=== PATIENT | male | born 1990 | race Caucasian/White ===

== ENCOUNTER 2017-08-15 18:23 | Emergency (ER) | payer OTHER ==
[~2017-08-15] VITALS: Ht 188 cm; Wt 117.9 kg
[~2017-08-15 18:23] MED LIST: ACETAMINOPHEN-1 EAC1 PO; ACTICIN 5% CREA60 G1 TOP; APAP/CODEI12 MG/5 ML PO; BACITRACIN28.4 GM TP; CELEXA 20 MG TA20 MG; CLEOCIN HCL150 MG PO; ERYTHROMYCIN250 MG PO; FLEXERIL PO; HYDROCODON-ACE1 EAC7 PO; HYDROCODONE-AP1 EAC6 PO; HYDROCODONE-APA1 TA1 PO; IBUPROFEN 200200 M1 PO; IBUPROFEN 800800 M1 PO; IBUPROFEN 800800 MG PO; KEFLEX500 MG PO; LIDOCAINE VISC100 M1 SWISH&SPIT; MEDROLDOSEPACK PO; NAPROSYN500 MG PO; NOHOMEMEDICATIONS; NORCO 5-325 TA1 EAC1 PO; NORCO 5-325 TA1 EACH PO; ONDANSETRON HCL4 M2 PO; PERCOCET 5-3251 EACH PO; PERCOCET PO; PERMETHRIN60 GM TOP; ROBAXIN500 MG PO; SILVADENE20 GM TP; TRAMADOL 50 MG50 MG PO; TYLENOL WITH CO1 TA1 PO; ULTRACET TABLET1 TAB PO; ULTRAM 50MG TAB50 MG PO; VENTOLIN HFA 1818 GM INH; VICODIN 5-3001 EACH PO; VICOPROFEN 2001 EACH PO; XANAX 0.25 MG0.25 MG PO; XANAX 0.5 MG0.5 MG PO; XANAX XR1 MG PO; ZANAFLEX4 MG PO; ZOFRAN ODT4 MG PO; ZPAK PO; magic mouthwash PO
[2017-08-15] MEDS ORDERED: KEFLEX500 M1 PO (19:04)
[2017-08-15] MEDS ORDERED: TRAMADOL 50 MG50 MG PO (19:04)
[2017-08-15 19:11] VITALS: BP 153/88
== END 2017-08-15 19:12 | disposition home or self-care (01) ==
LOC: M.ERS 18:23
DX: S61.211D Laceration without foreign body of left index finger without damage to nail, subsequent encounter (principal); J45.909 Unspecified asthma, uncomplicated; X58.XXXD Exposure to other specified factors, subsequent encounter; Z88.0 Allergy status to penicillin; Z88.2 Allergy status to sulfonamides; F17.210 Nicotine dependence, cigarettes, uncomplicated

== ENCOUNTER 2017-08-27 14:48 | Emergency (ER) | payer OTHER ==
[~2017-08-27] VITALS: Ht 188 cm; Wt 117.9 kg
[~2017-08-27 14:48] MED LIST changes: +KEFLEX500 M1 PO
[2017-08-27] MEDS ORDERED: CLEOCIN HCL150 MG PO (15:25)
[2017-08-27 16:16] VITALS: BP 147/94
== END 2017-08-27 16:17 | disposition home or self-care (01) ==
LOC: M.ERS 14:48
DX: M79.644 Pain in right finger(s) (principal); J45.909 Unspecified asthma, uncomplicated; F17.210 Nicotine dependence, cigarettes, uncomplicated; Z88.0 Allergy status to penicillin; Z88.2 Allergy status to sulfonamides

== ENCOUNTER 2017-11-09 13:50 | Emergency (ER) | payer OTHER ==
[~2017-11-09] VITALS: Ht 188 cm; Wt 117.9 kg
[2017-11-09] MEDS ORDERED: NORCO 10-325 T1 EACH PO (14:03)
[2017-11-09] MEDS ORDERED: ROBAXIN 750 MG750 M1 PO (14:03)
[2017-11-09 16:25] VITALS: BP 119/74
== END 2017-11-09 16:27 | disposition home or self-care (01) ==
LOC: M.ERS 13:50
DX: R51 Headache (principal); F07.81 Postconcussional syndrome; J45.909 Unspecified asthma, uncomplicated; G89.29 Other chronic pain; M54.9 Dorsalgia, unspecified; F17.210 Nicotine dependence, cigarettes, uncomplicated; Z88.0 Allergy status to penicillin; Z88.1 Allergy status to other antibiotic agents

== ENCOUNTER 2018-02-26 16:22 | Emergency (ER) | payer OTHER ==
[~2018-02-26] VITALS: Ht 188 cm; Wt 117.9 kg
[~2018-02-26 16:22] MED LIST changes: +NORCO 10-325 T1 EACH PO; +ROBAXIN 750 MG750 M1 PO
[2018-02-26 16:49] VITALS: BP 146/88
[2018-02-26] MEDS ORDERED: VOLTAREN GEL 1100 G1 TOP (17:12)
[2018-02-26] MEDS ORDERED: TRAMADOL 50 MG50 MG PO (17:12)
== END 2018-02-26 17:25 | disposition home or self-care (01) ==
LOC: M.ERS 16:22
DX: S46.811A Strain of other muscles, fascia and tendons at shoulder and upper arm level, right arm, initial encounter (principal); J45.909 Unspecified asthma, uncomplicated; G89.29 Other chronic pain; M54.9 Dorsalgia, unspecified; F17.210 Nicotine dependence, cigarettes, uncomplicated; Z88.0 Allergy status to penicillin; Z88.1 Allergy status to other antibiotic agents; X58.XXXA Exposure to other specified factors, initial encounter; Y93.89 Activity, other specified; Y92.89 Other specified places as the place of occurrence of the external cause; Y99.8 Other external cause status

== ENCOUNTER 2018-04-23 00:18 | Emergency (ER) | payer OTHER ==
[~2018-04-23] VITALS: Ht 188 cm; Wt 122.5 kg
[~2018-04-23 00:18] MED LIST changes: +VOLTAREN GEL 1100 G1 TOP
[2018-04-23 00:45] VITALS: BP 132/64
[2018-04-23 00:55] LABS: URINE BILIRUBIN NEGATIVE (Negative); URINE BLOOD NEGATIVE (Negative); URINE CLARITY CLEAR; URINE COLOR YELLOW; URINE GLUCOSE-RANDOM NEGATIVE (Negative); URINE KETONES NEGATIVE (Negative); URINE LEUKOCYTES-REFLEX NEGATIVE (Negative); URINE NITRITE-REFLEX NEGATIVE (Negative); URINE PROTEIN NEGATIVE (Negative); URINE SPECIFIC GRAVITY 1.015 (1.005-1.030); URINE UROBILINOGEN 0.2 E.U./dl (0.2-1.0)
[2018-04-23 01:05] LABS: ABSOLUTE EOSINOPHILS 0.3 thou/uL (0.0-0.7); ABSOLUTE LYMPHOCYTES 2.1 thou/uL (0.8-5.3); ABSOLUTE MONOCYTES 0.7 thou/uL (0.0-1.2); BASOPHILS 0.8 %; EOSINOPHILS 4.4 %; HEMATOCRIT 40.6 % (42.0-52.0); LYMPHOCYTES 34.2 %; MCH 31.1 pg (26.0-34.0); MCHC 34.5 g/dL (28.0-37.0); MCV 90.2 fL (80.0-100.0); MONOCYTES 11.3 %; MPV 7.7 fl. (7.2-11.1); NUCLEATED RBCS 0 /100WBC; PLATELET COUNT* 178 thou/uL (150-400); POLYS 49.3 %; RDW-CV 13.6 % (10.5-14.5); WBC 6.1 thou/uL (4.0-11.0)
[2018-04-23 01:20] LABS: ANION GAP 7 mmol/L (7-16); BUN 14 mg/dL (7-18); CALCIUM 7.9 mg/dL (8.5-10.1); CHLORIDE 104 mmol/L (98-107); CO2 27 mmol/L (21-32); CREATININE 1.3 mg/dL (0.6-1.3); SODIUM 138 mmol/L (136-145)
[2018-04-23 01:24] LABS: ALBUMIN 3.6 g/dL (3.4-5.0); ALKALINE PHOSPHATASE 59 U/L (46-116); LIPASE 124 U/L (73-393); SGPT 39 U/L (30-65); TOTAL BILIRUBIN 0.2 mg/dL (<0.1-1.0); TOTAL PROTEIN 6.7 g/dL (6.4-8.2); TROPONIN-I LEVEL <0.06 ng/mL (<0.06)
[2018-04-23 01:25] LABS: AMP/METHAMP Negative (Negative); BARBITURATES Negative (Negative); BENZODIAZEPINES POSITIVE (Negative); COCAINE Negative (Negative); METHADONE Negative (Negative); OPIATES POSITIVE (Negative); PCP Negative (Negative); THC POSITIVE (Negative)
[2018-04-23 02:13] LABS: GLUCOSE 90 mg/dL (70-99); SGOT 31 U/L (15-37)
--- NOTE | 2018-04-23 11:06 | EKG ---
[place] [address] ELECTROCARDIOGRAM REPORT Name: DENTDANIEL CARTWRIGHTALD Room: [facility].#: [id number] Admission: 04/23/18 Attend Phys: Discharge: 04/23/18 Date of : 86 Report #: [id number] THIS REPORT FOR: //name// [facility] ED Test Date: 2018-04-23 Test Time: 01:08:13 Pat Name: DANIEL DENT Department: Room: Gender: M Continuity Manager: SHAWN : 1990 Requested By: Pedro Starr Order Number: [id number] MD: Donny Michel Measurements Intervals Rena Lara Rate: 78 P: 34 PA: 164 QRS: 45 QRSD: 89 T: 23 QT: 391 QTc: 446 Interpretive Statements Sinus rhythm Baseline wander in lead(s) V1 No previous ECG available for comparison Electronically Signed On 04-23-2018 11:06:00 CDT by Donny Michel [email or web address] <ELECTRONICALLY SIGNED> By: Donny Michel MD, [facility] 04/23/18 [id number] Donny Michel MD, FACC /EPI
== END 2018-04-23 03:26 | disposition left against medical advice (07) ==
LOC: M.ERS 00:18
PROVIDERS: Emergency Medicine Emergency Medical Services
DX: R10.9 Unspecified abdominal pain (principal); R11.2 Nausea with vomiting, unspecified; R19.7 Diarrhea, unspecified; J45.909 Unspecified asthma, uncomplicated; G89.29 Other chronic pain; F17.210 Nicotine dependence, cigarettes, uncomplicated; Z88.0 Allergy status to penicillin; Z88.2 Allergy status to sulfonamides

== ENCOUNTER 2018-08-21 21:16 | Emergency (ER) | payer OTHER ==
[~2018-08-21] VITALS: Ht 188 cm; Wt 127.0 kg
[2018-08-21] MEDS ORDERED: NORCO 7.5-3251 EACH PO (22:05)
[2018-08-21] MEDS ORDERED: PHENERGAN 25 MG25 M1 PO (22:05)
[2018-08-21 22:17] VITALS: BP 143/81
== END 2018-08-21 22:18 | disposition home or self-care (01) ==
LOC: M.ERS 21:16
DX: S06.0X0A Concussion without loss of consciousness, initial encounter (principal); J45.909 Unspecified asthma, uncomplicated; G89.29 Other chronic pain; M54.9 Dorsalgia, unspecified; F17.210 Nicotine dependence, cigarettes, uncomplicated; Z88.0 Allergy status to penicillin; Z88.2 Allergy status to sulfonamides; W18.39XA Other fall on same level, initial encounter; Y93.01 Activity, walking, marching and hiking; Y92.89 Other specified places as the place of occurrence of the external cause; Y99.8 Other external cause status

== ENCOUNTER 2018-09-10 19:38 | Emergency (ER) | payer OTHER ==
[~2018-09-10] VITALS: Ht 188 cm; Wt 122.5 kg
[~2018-09-10 19:38] MED LIST changes: +NORCO 7.5-3251 EACH PO; +PHENERGAN 25 MG25 M1 PO
[2018-09-10] MEDS ORDERED: ZOFRAN ODT4 MG DISSOLVE (19:46)
[2018-09-10] MEDS ORDERED: XANAX1 MG PO (19:47)
[2018-09-10] MEDS ORDERED: ZOFRAN ODT4 MG PO (19:54)
[2018-09-10] MEDS ORDERED: NORCO 5-325 TA1 EACH PO (19:54)
[2018-09-10 20:14] VITALS: BP 140/79
== END 2018-09-10 20:10 | disposition home or self-care (01) ==
LOC: M.ERS 19:38
DX: R51 Headache (principal); F17.210 Nicotine dependence, cigarettes, uncomplicated; J45.909 Unspecified asthma, uncomplicated; M54.9 Dorsalgia, unspecified; G89.29 Other chronic pain; Z88.0 Allergy status to penicillin; Z88.2 Allergy status to sulfonamides

== ENCOUNTER 2018-10-07 09:06 | Emergency (ER) | payer OTHER ==
[~2018-10-07] VITALS: Ht 188 cm; Wt 12.7 kg
[~2018-10-07 09:06] MED LIST changes: +XANAX1 MG PO; +ZOFRAN ODT4 MG DISSOLVE
[2018-10-07] MEDS ORDERED: TAMIFLU75 MG PO (09:13)
[2018-10-07] MEDS ORDERED: BENTYL 10 MG CA10 M1 PO (09:23)
[2018-10-07] MEDS ORDERED: HYDROCHLOROTHIA25 M2 PO (09:23)
[2018-10-07] MEDS ORDERED: PANCREAS MED (09:24)
[2018-10-07 09:43] VITALS: BP 179/89
== END 2018-10-07 09:43 | disposition home or self-care (01) ==
LOC: M.ERS 09:06
DX: Z20.828 Contact with and (suspected) exposure to other viral communicable diseases (principal); J45.909 Unspecified asthma, uncomplicated; G89.29 Other chronic pain; M54.9 Dorsalgia, unspecified; F17.210 Nicotine dependence, cigarettes, uncomplicated; Z88.0 Allergy status to penicillin; Z88.2 Allergy status to sulfonamides

== ENCOUNTER 2018-10-09 02:33 | Emergency (ER) | payer OTHER ==
[~2018-10-09] VITALS: Ht 188 cm; Wt 127.0 kg
[~2018-10-09 02:33] MED LIST changes: +BENTYL 10 MG CA10 M1 PO; +HYDROCHLOROTHIA25 M2 PO; +PANCREAS MED; +TAMIFLU75 MG PO
[2018-10-09 03:40] LABS: ABSOLUTE LYMPHOCYTES 0.6 thou/uL (0.8-5.3); ABSOLUTE MONOCYTES 0.2 thou/uL (0.0-1.2); ABSOLUTE NEUTROPHILS 3.7 thou/uL (1.6-8.1); BASOPHILS 0.4 %; EOSINOPHILS 0.1 %; HEMATOCRIT 43.3 % (42.0-52.0); LYMPHOCYTES 12.3 %; MCH 30.3 pg (26.0-34.0); MCHC 34.7 g/dL (28.0-37.0); MCV 87.3 fL (80.0-100.0); MONOCYTES 5.2 %; NUCLEATED RBCS 0 /100WBC; PLATELET COUNT* 184 thou/uL (150-400); RBC 4.96 mil/uL (4.50-6.00); RDW-CV 13.5 % (10.5-14.5); WBC 4.5 thou/uL (4.0-11.0)
[2018-10-09 04:10] LABS: CALCIUM 8.9 mg/dL (8.5-10.1); CREATININE 1.3 mg/dL (0.6-1.3); POTASSIUM 3.8 mmol/L (3.5-5.1); TOTAL BILIRUBIN 0.2 mg/dL (<0.1-1.0); TOTAL PROTEIN 7.1 g/dL (6.4-8.2)
[2018-10-09 05:22] LABS: INFLUENZA A ANTIGEN None Detected (None Detect); INFLUENZA B ANTIGEN None Detected (None Detect)
[2018-10-09] MEDS ORDERED: NORCO 5-325 TA1 EACH PO (05:31)
[2018-10-09] MEDS ORDERED: IBUPROFEN 800800 M1 PO (05:31)
[2018-10-09] MEDS ORDERED: PHENERGAN 25 MG25 M1 PO (05:31)
[2018-10-09 05:40] VITALS: BP 122/61
[2018-10-10] MEDS ORDERED: ZOFRAN ODT4 MG PO (07:04)
[2018-10-10] MEDS ORDERED: PERCOCET 7.5-31 EACH PO (07:04)
== END 2018-10-09 05:40 | disposition home or self-care (01) ==
LOC: M.ERS 02:33
PROVIDERS: Personal Emergency Response Attendant
DX: B34.9 Viral infection, unspecified (principal); R42 Dizziness and giddiness; F17.210 Nicotine dependence, cigarettes, uncomplicated; J45.909 Unspecified asthma, uncomplicated; M54.9 Dorsalgia, unspecified; G89.29 Other chronic pain; Z88.2 Allergy status to sulfonamides; Z88.0 Allergy status to penicillin

== ENCOUNTER 2018-10-10 02:13 | Emergency (ER) | payer OTHER ==
[~2018-10-10] VITALS: Ht 188 cm; Wt 127.0 kg
[2018-10-10 04:14] LABS: INFLUENZA A ANTIGEN None Detected (None Detect); INFLUENZA B ANTIGEN None Detected (None Detect)
[2018-10-10 04:15] LABS: ABSOLUTE BASOPHILS 0.1 thou/uL (0.0-0.2); ABSOLUTE LYMPHOCYTES 2.2 thou/uL (0.8-5.3); ABSOLUTE NEUTROPHILS 9.8 thou/uL (1.6-8.1); BASOPHILS 0.4 %; EOSINOPHILS 0.1 %; HEMATOCRIT 40.5 % (42.0-52.0); HEMOGLOBIN 13.8 gm/dL (14.0-18.0); LYMPHOCYTES 16.5 %; MCH 29.9 pg (26.0-34.0); NUCLEATED RBCS 0 /100WBC; PLATELET COUNT* 168 thou/uL (150-400)
[2018-10-10 04:52] LABS: ALBUMIN 3.4 g/dL (3.4-5.0); CALCIUM 8.6 mg/dL (8.5-10.1); CREATININE 1.1 mg/dL (0.6-1.3); POTASSIUM 3.7 mmol/L (3.5-5.1); TOTAL BILIRUBIN 0.3 mg/dL (<0.1-1.0); TOTAL PROTEIN 6.3 g/dL (6.4-8.2)
[2018-10-10 06:28] LABS: VOLUME 8 ml
[2018-10-10 06:30] LABS: CSF CLARITY CLEAR; CSF COLOR COLORLESS
[2018-10-10 06:34] LABS: AMP/METHAMP Negative (Negative); BARBITURATES Negative (Negative); BENZODIAZEPINES POSITIVE (Negative); COCAINE Negative (Negative); METHADONE Negative (Negative); OPIATES POSITIVE (Negative); PCP Negative (Negative); THC POSITIVE (Negative)
[2018-10-10] MEDS ORDERED: ZOFRAN ODT4 MG PO (07:04)
[2018-10-10] MEDS ORDERED: PERCOCET 7.5-31 EACH PO (07:04)
[2018-10-10 07:06] LABS: CSF RBC 3 /mm3; CSF WBC 4 /mm3 (0-10)
[2018-10-10 07:13] LABS: CSF PROTEIN 51.2 mg/dl (15-45)
[2018-10-10 07:44] LABS: CSF CLARITY CLEAR; CSF COLOR COLORLESS; VOLUME 8 ml
[2018-10-10 08:05] VITALS: BP 150/67
[2018-10-10 08:10] LABS: CSF WBC 5 /mm3 (0-10)
[2018-10-10 08:11] LABS: CSF RBC 34 /mm3
== END 2018-10-10 08:05 | disposition home or self-care (01) ==
LOC: M.ERS 02:13
PROVIDERS: Emergency Medicine
DX: J06.9 Acute upper respiratory infection, unspecified (principal); R51 Headache; R11.2 Nausea with vomiting, unspecified; J45.909 Unspecified asthma, uncomplicated; G89.29 Other chronic pain; M54.9 Dorsalgia, unspecified; F17.210 Nicotine dependence, cigarettes, uncomplicated; Z88.0 Allergy status to penicillin; Z88.2 Allergy status to sulfonamides; Z79.899 Other long term (current) drug therapy

== ENCOUNTER 2018-11-23 20:43 | Emergency (ER) | payer OTHER ==
[~2018-11-23] VITALS: Ht 188 cm; Wt 117.9 kg
[~2018-11-23 20:43] MED LIST changes: +PERCOCET 7.5-31 EACH PO
[2018-11-23 21:12] LABS: ABSOLUTE BASOPHILS 0.1 thou/uL (0.0-0.2); ABSOLUTE EOSINOPHILS 0.1 thou/uL (0.0-0.7); ABSOLUTE LYMPHOCYTES 2.8 thou/uL (0.8-5.3); ABSOLUTE NEUTROPHILS 4.5 thou/uL (1.6-8.1); BASOPHILS 1.3 %; EOSINOPHILS 1.7 %; HEMATOCRIT 46.6 % (42.0-52.0); HEMOGLOBIN 16.2 gm/dL (14.0-18.0); LYMPHOCYTES 32.8 %; MCH 30.6 pg (26.0-34.0); MCHC 34.8 g/dL (28.0-37.0); MONOCYTES 11.1 %; MPV 7.6 fl. (7.2-11.1); NUCLEATED RBCS 0 /100WBC; PLATELET COUNT* 216 thou/uL (150-400); POLYS 53.1 %; RDW-CV 13.8 % (10.5-14.5); WBC 8.6 thou/uL (4.0-11.0)
[2018-11-23 21:24] LABS: ALBUMIN 4.3 g/dL (3.4-5.0); CALCIUM 9.3 mg/dL (8.5-10.1); CREATININE 1.4 mg/dL (0.6-1.3); POTASSIUM 4.7 mmol/L (3.5-5.1); TOTAL BILIRUBIN 0.6 mg/dL (<0.1-1.0); TOTAL PROTEIN 7.6 g/dL (6.4-8.2)
[2018-11-23 21:24] LABS: URINE BILIRUBIN NEGATIVE (Negative); URINE BLOOD TRACE (Negative); URINE CLARITY CLEAR; URINE COLOR YELLOW; URINE GLUCOSE-RANDOM NEGATIVE (Negative); URINE KETONES NEGATIVE (Negative); URINE LEUKOCYTES-REFLEX NEGATIVE (Negative); URINE NITRITE-REFLEX NEGATIVE (Negative); URINE PROTEIN NEGATIVE (Negative); URINE SPECIFIC GRAVITY >= 1.030 (1.005-1.030); URINE UROBILINOGEN 0.2 E.U./dl (0.2-1.0)
[2018-11-23 21:32] LABS: AMP/METHAMP Negative (Negative); BARBITURATES Negative (Negative); BENZODIAZEPINES POSITIVE (Negative); COCAINE Negative (Negative); METHADONE Negative (Negative); OPIATES Negative (Negative); PCP Negative (Negative); THC POSITIVE (Negative)
[2018-11-23] MEDS ORDERED: HYDROCODON-ACE1 EAC7 PO (21:41)
[2018-11-23] MEDS ORDERED: ZOFRAN4 MG PO (21:41)
[2018-11-23 22:08] VITALS: BP 194/75
== END 2018-11-23 22:09 | disposition home or self-care (01) ==
LOC: M.ERS 20:43
PROVIDERS: Emergency Medicine
DX: E86.0 Dehydration (principal); R51 Headache; J45.909 Unspecified asthma, uncomplicated; F17.210 Nicotine dependence, cigarettes, uncomplicated; Z88.0 Allergy status to penicillin; Z88.2 Allergy status to sulfonamides

== ENCOUNTER 2018-11-29 18:21 | Emergency (ER) | payer OTHER ==
[~2018-11-29] VITALS: Ht 188 cm; Wt 108.9 kg
[~2018-11-29 18:21] MED LIST changes: +ZOFRAN4 MG PO
[2018-11-29 18:44] LABS: URINE BILIRUBIN NEGATIVE (Negative); URINE BLOOD NEGATIVE (Negative); URINE CLARITY CLEAR; URINE COLOR YELLOW; URINE GLUCOSE-RANDOM NEGATIVE (Negative); URINE KETONES NEGATIVE (Negative); URINE LEUKOCYTES-REFLEX NEGATIVE (Negative); URINE NITRITE-REFLEX NEGATIVE (Negative); URINE PROTEIN NEGATIVE (Negative); URINE UROBILINOGEN 0.2 E.U./dl (0.2-1.0)
[2018-11-29 18:52] LABS: ABSOLUTE BASOPHILS 0.1 thou/uL (0.0-0.2); ABSOLUTE EOSINOPHILS 0.1 thou/uL (0.0-0.7); ABSOLUTE LYMPHOCYTES 2.3 thou/uL (0.8-5.3); ABSOLUTE NEUTROPHILS 7.6 thou/uL (1.6-8.1); BASOPHILS 0.7 %; EOSINOPHILS 1.1 %; HEMOGLOBIN 15.2 gm/dL (14.0-18.0); LYMPHOCYTES 21.1 %; MCH 30.6 pg (26.0-34.0); MCHC 34.6 g/dL (28.0-37.0); MCV 88.4 fL (80.0-100.0); MONOCYTES 8.6 %; MPV 7.8 fl. (7.2-11.1); NUCLEATED RBCS 0 /100WBC; PLATELET COUNT* 208 thou/uL (150-400); POLYS 68.5 %; RBC 4.98 mil/uL (4.50-6.00); RDW-CV 14.2 % (10.5-14.5); WBC 11.1 thou/uL (4.0-11.0)
[2018-11-29 19:04] LABS: ALBUMIN 4.2 g/dL (3.4-5.0); CREATININE 1.3 mg/dL (0.6-1.3); POTASSIUM 3.9 mmol/L (3.5-5.1); TOTAL BILIRUBIN 0.3 mg/dL (<0.1-1.0); TOTAL PROTEIN 7.6 g/dL (6.4-8.2)
[2018-11-29] MEDS ORDERED: NORCO 5-325 TA1 EACH PO (20:59)
[2018-11-29 21:15] VITALS: BP 133/85
== END 2018-11-29 21:16 | disposition home or self-care (01) ==
LOC: M.ERS 18:21
PROVIDERS: Nurse Practitioner Family
DX: R10.12 Left upper quadrant pain (principal); R11.2 Nausea with vomiting, unspecified; R19.7 Diarrhea, unspecified; J45.909 Unspecified asthma, uncomplicated; G89.29 Other chronic pain; M54.9 Dorsalgia, unspecified; I10 Essential (primary) hypertension; F17.210 Nicotine dependence, cigarettes, uncomplicated; Z88.0 Allergy status to penicillin; Z88.2 Allergy status to sulfonamides

== ENCOUNTER 2018-12-26 03:23 | Emergency (ER) | payer OTHER ==
[~2018-12-26] VITALS: Ht 188 cm; Wt 122.5 kg
[2018-12-26] MEDS ORDERED: PHENERGAN 25 MG25 M1 (03:33)
[2018-12-26] MEDS ORDERED: BLOOD PRESSURE (03:34)
[2018-12-26 03:54] LABS: ABSOLUTE EOSINOPHILS 0.1 thou/uL (0.0-0.7); ABSOLUTE LYMPHOCYTES 1.7 thou/uL (0.8-5.3); ABSOLUTE MONOCYTES 0.7 thou/uL (0.0-1.2); ABSOLUTE NEUTROPHILS 4.1 thou/uL (1.6-8.1); BASOPHILS 0.4 %; HEMATOCRIT 42.7 % (42.0-52.0); HEMOGLOBIN 14.6 gm/dL (14.0-18.0); LYMPHOCYTES 25.4 %; MCH 30.8 pg (26.0-34.0); MCHC 34.1 g/dL (28.0-37.0); MCV 90.1 fL (80.0-100.0); NUCLEATED RBCS 0 /100WBC; PLATELET COUNT* 180 thou/uL (150-400); POLYS 61.2 %; RBC 4.74 mil/uL (4.50-6.00); WBC 6.8 thou/uL (4.0-11.0)
[2018-12-26 04:04] LABS: CALCIUM 8.8 mg/dL (8.5-10.1); CREATININE 1.1 mg/dL (0.6-1.3); POTASSIUM 4.5 mmol/L (3.5-5.1)
[2018-12-26 04:08] LABS: ALBUMIN 4.1 g/dL (3.4-5.0); TOTAL BILIRUBIN 0.3 mg/dL (<0.1-1.0)
[2018-12-26 04:31] LABS: URINE BILIRUBIN NEGATIVE (Negative); URINE BLOOD NEGATIVE (Negative); URINE CLARITY CLEAR; URINE COLOR STRAW; URINE GLUCOSE-RANDOM NEGATIVE (Negative); URINE KETONES NEGATIVE (Negative); URINE LEUKOCYTES-REFLEX NEGATIVE (Negative); URINE NITRITE-REFLEX NEGATIVE (Negative); URINE PROTEIN NEGATIVE (Negative); URINE SPECIFIC GRAVITY <= 1.005 (1.005-1.030); URINE UROBILINOGEN 0.2 E.U./dl (0.2-1.0)
[2018-12-26 04:39] LABS: AMP/METHAMP Negative (Negative); BARBITURATES Negative (Negative); BENZODIAZEPINES POSITIVE (Negative); COCAINE Negative (Negative); METHADONE Negative (Negative); OPIATES Negative (Negative); PCP Negative (Negative); THC POSITIVE (Negative)
[2018-12-26 05:38] VITALS: BP 141/71
== END 2018-12-26 05:39 | disposition home or self-care (01) ==
LOC: M.ERS 03:23
PROVIDERS: Emergency Medicine
DX: R51 Headache (principal); R10.31 Right lower quadrant pain; F17.210 Nicotine dependence, cigarettes, uncomplicated; J45.909 Unspecified asthma, uncomplicated; M54.9 Dorsalgia, unspecified; G89.29 Other chronic pain; I10 Essential (primary) hypertension; Z88.2 Allergy status to sulfonamides; Z88.0 Allergy status to penicillin

== ENCOUNTER 2019-04-04 14:18 | Emergency (ER) | payer OTHER ==
[~2019-04-04] VITALS: Ht 188 cm; Wt 122.5 kg
[~2019-04-04 14:18] MED LIST changes: +BLOOD PRESSURE; +PHENERGAN 25 MG25 M1
[2019-04-04] MEDS ORDERED: GEMFIBROZIL 60600 MG PO (14:34)
[2019-04-04] MEDS ORDERED: IBUPROFEN 600600 M1 PO (14:35)
[2019-04-04 14:42] VITALS: BP 166/88
== END 2019-04-04 14:43 | disposition home or self-care (01) ==
LOC: M.ERS 14:18
DX: S00.83XA Contusion of other part of head, initial encounter (principal); J45.909 Unspecified asthma, uncomplicated; G89.29 Other chronic pain; I10 Essential (primary) hypertension; F17.210 Nicotine dependence, cigarettes, uncomplicated; Z88.0 Allergy status to penicillin; Z88.2 Allergy status to sulfonamides; W22.8XXA Striking against or struck by other objects, initial encounter; Y93.89 Activity, other specified; Y92.89 Other specified places as the place of occurrence of the external cause; Y99.8 Other external cause status

== ENCOUNTER 2020-01-28 10:54 | Emergency (ER) | payer OTHER ==
[~2020-01-28] VITALS: Ht 188 cm; Wt 117.9 kg
[~2020-01-28 10:54] MED LIST changes: +GEMFIBROZIL 60600 MG PO; +IBUPROFEN 600600 M1 PO
[2020-01-28] MEDS ORDERED: NORCO 5-325 TA1 EAC1 PO ×2 (11:41→18:28)
[2020-01-28 11:48] VITALS: BP 171/77
== END 2020-01-28 11:48 | disposition home or self-care (01) ==
LOC: M.ERS 10:54
DX: S83.8X2A Sprain of other specified parts of left knee, initial encounter (principal); I10 Essential (primary) hypertension; J45.909 Unspecified asthma, uncomplicated; G89.29 Other chronic pain; F17.210 Nicotine dependence, cigarettes, uncomplicated; Z88.0 Allergy status to penicillin; Z88.2 Allergy status to sulfonamides; X50.1XXA Overexertion from prolonged static or awkward postures, initial encounter; Y93.66 Activity, soccer; Y92.89 Other specified places as the place of occurrence of the external cause; Y99.8 Other external cause status

== ENCOUNTER 2020-03-30 22:43 | Emergency (ER) | payer OTHER ==
[~2020-03-30] VITALS: Ht 188 cm; Wt 127.0 kg
[2020-03-30] MEDS ORDERED: CELEXA10 MG PO (22:55)
[2020-03-30] MEDS ORDERED: SEROQUEL 25 MG25 M1 PO (22:55)
[2020-03-30] MEDS ORDERED: HYDROCODON-ACE1 EAC8 PO ×2 (23:21→23:29)
[2020-03-30] MEDS ORDERED: KEFLEX500 M1 PO ×2 (23:21→23:29)
[2020-03-30 23:35] VITALS: BP 154/70
== END 2020-03-30 23:36 | disposition home or self-care (01) ==
LOC: M.ERS 22:43
DX: K02.9 Dental caries, unspecified (principal); J45.909 Unspecified asthma, uncomplicated; I10 Essential (primary) hypertension; G89.29 Other chronic pain; Z88.2 Allergy status to sulfonamides; Z88.0 Allergy status to penicillin

== ENCOUNTER 2020-04-08 14:33 | Emergency (ER) | payer OTHER ==
[~2020-04-08] VITALS: Ht 188 cm; Wt 127.0 kg
[~2020-04-08 14:33] MED LIST changes: +CELEXA10 MG PO; +HYDROCODON-ACE1 EAC8 PO; +SEROQUEL 25 MG25 M1 PO
[2020-04-08] MEDS ORDERED: CLEOCIN HCL150 MG PO (15:55)
[2020-04-08] MEDS ORDERED: APAP W/CODEINE1 TA2 PO (15:55)
[2020-04-08 16:03] VITALS: BP 196/107
== END 2020-04-08 16:04 | disposition home or self-care (01) ==
LOC: M.ERS 14:33
DX: K04.7 Periapical abscess without sinus (principal); K01.1 Impacted teeth; J45.909 Unspecified asthma, uncomplicated; I10 Essential (primary) hypertension; F17.210 Nicotine dependence, cigarettes, uncomplicated; Z88.0 Allergy status to penicillin; Z88.2 Allergy status to sulfonamides

== ENCOUNTER 2020-07-17 20:54 | Emergency (ER) | payer OTHER ==
[~2020-07-17] VITALS: Ht 188 cm; Wt 131.5 kg
[~2020-07-17 20:54] MED LIST changes: +APAP W/CODEINE1 TA2 PO
[2020-07-17] MEDS ORDERED: WELLBUTRIN XL300 MG PO (21:06)
[2020-07-17] MEDS ORDERED: DESYREL150 MG PO (21:06)
[2020-07-17] MEDS ORDERED: MELOXICAM15 MG PO (21:39)
[2020-07-17] MEDS ORDERED: ACETAMINOPHEN-1 EAC2 PO (21:39)
[2020-07-17 21:45] VITALS: BP 140/88
== END 2020-07-17 21:45 | disposition home or self-care (01) ==
LOC: M.ERS 20:54
DX: S83.92XA Sprain of unspecified site of left knee, initial encounter (principal); J45.909 Unspecified asthma, uncomplicated; G89.29 Other chronic pain; I10 Essential (primary) hypertension; Z88.0 Allergy status to penicillin; Z88.2 Allergy status to sulfonamides; Z79.899 Other long term (current) drug therapy; X50.1XXA Overexertion from prolonged static or awkward postures, initial encounter; Y93.01 Activity, walking, marching and hiking; Y92.89 Other specified places as the place of occurrence of the external cause; Y99.9 Unspecified external cause status

== ENCOUNTER 2020-12-28 20:57 | Emergency (ER) | payer OTHER ==
[~2020-12-28] VITALS: Ht 188 cm; Wt 127.0 kg
[~2020-12-28 20:57] MED LIST changes: +ACETAMINOPHEN-1 EAC2 PO; +DESYREL150 MG PO; +MELOXICAM15 MG PO; +WELLBUTRIN XL300 MG PO
[2020-12-28] MEDS ORDERED: PEPCID20 MG PO (21:06)
[2020-12-28] MEDS ORDERED: CIPROFLOXIN HC2.5 M1 OPHTHALMIC (21:21)
[2020-12-28 21:31] VITALS: BP 132/76
== END 2020-12-28 21:32 | disposition home or self-care (01) ==
LOC: M.ERS 20:57
DX: S05.02XA Injury of conjunctiva and corneal abrasion without foreign body, left eye, initial encounter (principal); J45.909 Unspecified asthma, uncomplicated; I10 Essential (primary) hypertension; F17.210 Nicotine dependence, cigarettes, uncomplicated; Z79.899 Other long term (current) drug therapy; Z88.0 Allergy status to penicillin; Z88.2 Allergy status to sulfonamides; W22.8XXA Striking against or struck by other objects, initial encounter; Y93.H2 Activity, gardening and landscaping; Y92.89 Other specified places as the place of occurrence of the external cause; Y99.8 Other external cause status

== ENCOUNTER 2021-05-04 13:32 | Emergency (ER) | payer OTHER ==
[~2021-05-04] VITALS: Ht 188 cm; Wt 113.4 kg
[~2021-05-04 13:32] MED LIST changes: +CIPROFLOXIN HC2.5 M1 OPHTHALMIC; +PEPCID20 MG PO
[2021-05-04] MEDS ORDERED: NORCO5 PO ×3 (14:00→14:18)
[2021-05-04] MEDS ORDERED: CLINDAMYCIN HC300 MG PO ×2 (14:00→14:18)
[2021-05-04] MEDS ORDERED: LIDOCAINE VISC100 ML SWISH&SPIT (14:00)
[2021-05-04 14:10] VITALS: BP 141/70
== END 2021-05-04 14:11 | disposition home or self-care (01) ==
LOC: M.ERS 13:32
DX: K01.1 Impacted teeth (principal); J45.909 Unspecified asthma, uncomplicated; I10 Essential (primary) hypertension; F17.210 Nicotine dependence, cigarettes, uncomplicated; Z79.899 Other long term (current) drug therapy; Z90.89 Acquired absence of other organs; Z88.0 Allergy status to penicillin; Z88.2 Allergy status to sulfonamides

== ENCOUNTER 2021-05-12 21:04 | Emergency (ER) | payer OTHER ==
[~2021-05-12] VITALS: Ht 188 cm; Wt 113.4 kg
[~2021-05-12 21:04] MED LIST changes: +CLINDAMYCIN HC300 MG PO; +LIDOCAINE VISC100 ML SWISH&SPIT; +NORCO5 PO
[2021-05-12] MEDS ORDERED: NORCO5 PO (21:23)
[2021-05-12] MEDS ORDERED: FLEXERIL PO (21:23)
[2021-05-12 21:38] VITALS: BP 157/66
[2021-05-12] MEDS ORDERED: ACETAMINOPHEN-1 EAC2 PO (22:17)
== END 2021-05-12 21:38 | disposition home or self-care (01) ==
LOC: M.ERS 21:04
DX: S29.011A Strain of muscle and tendon of front wall of thorax, initial encounter (principal); J45.909 Unspecified asthma, uncomplicated; G89.29 Other chronic pain; I10 Essential (primary) hypertension; F17.210 Nicotine dependence, cigarettes, uncomplicated; Z88.0 Allergy status to penicillin; Z88.2 Allergy status to sulfonamides; X58.XXXA Exposure to other specified factors, initial encounter; Y93.89 Activity, other specified; Y92.89 Other specified places as the place of occurrence of the external cause; Y99.8 Other external cause status

== ENCOUNTER 2021-05-14 09:08 | Emergency (ER) | payer OTHER ==
[~2021-05-14] VITALS: Ht 188 cm; Wt 113.4 kg
[2021-05-14] MEDS ORDERED: PREDNISONE 20 M20 M1 PO (09:57)
[2021-05-14 09:59] VITALS: BP 154/72
== END 2021-05-14 09:59 | disposition home or self-care (01) ==
LOC: M.ERS 09:08
DX: R07.89 Other chest pain (principal); M25.512 Pain in left shoulder; J45.909 Unspecified asthma, uncomplicated; I10 Essential (primary) hypertension; Z79.899 Other long term (current) drug therapy; Z88.0 Allergy status to penicillin; Z88.2 Allergy status to sulfonamides